=== PATIENT | male | born 1955 | race Caucasian/White ===

== ENCOUNTER 2018-01-06 19:06 | Emergency (ER) | END 2018-01-06 22:16 | disposition home or self-care (01) ==

== ENCOUNTER 2018-10-31 06:16 | Day surgery (SDC) | payer OTHER ==
[~2018-10-31] VITALS: Ht 167.6 cm; Wt 70.4 kg
[~2018-10-31 06:16] MED LIST: OMEP40CA6 PO; RANI150T35 PO
[2018-10-31 08:40] VITALS: Ht 167.6 cm; Wt 70.4 kg
[2018-10-31 08:43] VITALS: BP 141/68; PULSE 49; RESP 28
[2018-10-31] MEDS ORDERED: NO MEDS (08:47)
[2018-10-31] MEDS ORDERED: FENTAnyl 50 MCG/ML VIAL ONE (09:21)
[2018-10-31] MEDS ORDERED: MIDAZOLAM 1 MG/ML 2 ML INJ ONE (09:21)
[2018-10-31 09:55] VITALS: PULSE 62
== END 2018-10-31 11:58 | disposition home or self-care (01) ==
LOC: GIL 06:16
PROVIDERS: ATTEND Internal Medicine Gastroenterology
DX: K92.1 Melena (principal); K64.8 Other hemorrhoids; K44.9 Diaphragmatic hernia without obstruction or gangrene; K21.0 Gastro-esophageal reflux disease with esophagitis; K29.30 Chronic superficial gastritis without bleeding
CPT/HCPCS: 43239; 45378; 88305; 88312; J2250; J3010; Z7610